=== PATIENT | female | born 2005 | race Caucasian/White ===

== ENCOUNTER 2025-02-11 17:02 | Emergency (ER) | payer OTHER, SELFPAY ==
[2025-02-11] MEDS ORDERED: Acetaminophen 500 MG TAB ONE (19:45)
== END 2025-02-11 20:27 ==
LOC: ERS 17:02
DX: S93.402A Sprain of unspecified ligament of left ankle, initial encounter (principal); X50.9XXA Other and unspecified overexertion or strenuous movements or postures, initial encounter
CPT/HCPCS: 99283